=== PATIENT | female | born 2005 | race Caucasian/White ===

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

== ENCOUNTER 2024-06-17 22:47 | Emergency (ER) | payer MEDICAID, SELFPAY ==
--- NOTE | 2024-06-17 23:20 | ED.GENADUL_ITS ---
Discharge Plan Disposition Patient Disposition: Home Condition: Good Discharge Details Clinical Impression: Influenza A Primary Care Provider: Unknown,Unknown ED Provider: Wu Mayer Home Meds and New Rx's Prescriptions: No Action No Known Home Meds Discharge Instructions Instructions: Flu, Adult ED Additional Instructions: You were seen in the ED for fever, cough, body aches and have tested positive for Flu A. Please rest and hydrated over the next few days. Alternate acetaminophen 1000mg with ibuprofen 600mg every 4 hours. Follow up with PCP next week if not improving as expected. Return to ED for chest pain, shortness of breath, confusion/lethargy, neurologic change, other concerns. HPI General Mode of arrival: ambulatory . Date/Time Provider Initiated Documentation: 06/17/24 23:20 . Limitations to Documentation: no limitations . Information obtained by: patient and RN notes reviewed . HPI Narrative: Patient presents to ED with complaint of fever, cough, body aches. Patient reports having fever and GI symptoms a week and 1/2 to 2 weeks ago. She has now had earache followed by fever, cough, malaise, body aches for the last couple of days. She is not having GI symptoms. She has no chest pain, shortness of breath, abdominal pain. She has a younger brother who is just starting to have symptoms. Related Data Home Medications ?Medication ?Instructions ?Recorded ?Confirmed Unknown [No Known Home Meds] 06/17/24 06/17/24 Allergies Allergy/AdvReac Type Severity Reaction Status Date / Time No Known Allergies Allergy Unverified 06/17/24 23:27 Exam Narrative Exam Narrative: Const: WDWN female in NAD. VS per triage. HEENT: NC/AT. Normal facial exam. TMs normal. Neck: Supple. Trachea midline. Lungs: Normal respiratory effort. Lungs are clear. Cor: RRR without murmur. Good radial pulses. Neuro: A+O x 3. Normal speech, mentation, gait. Cranial nerves II - XII grossly intact. No gross motor or sensory deficit. Ext: No C/C/E. Medical Decision Making Patient presenting to ED with flulike symptoms. She is febrile and tachycardic. Nursing had obtained Fluvid and sent from triage. Discussed with patient that this most likely is influenza A given the prevalence of it in the community at this time. We did discuss use of Tamiflu which she declines appropriately given her young age and no significant medical history. She was given ibuprofen here. Fluvid swab did come back positive for influenza A. She was improved with the ibuprofen. We discussed alternating acetaminophen and ibuprofen to control fever and pain. She is to rest and hydrate appropriately. Discussed expected time course for her illness. Follow-up with primary care next week if not improving. Return precautions provided. Lab Data Lab results reviewed: Yes I reviewed the patient's lab results. Lab results narrative: See MDM Quality:SDOH Health Related Social Needs: No Data to Display PFSH All Active Problems (Updated 06/18/24 @ 00:33 by Wu Mayer MD) Influenza A (Acute) Social History Smoking/Tobacco Use Status: Never Smoking risk assessment performed?: Yes Alcohol Intake: never Substance use type: does not use Housing: house Do you feel safe at home: Yes Do you feel safe in your relationship?: Yes
[2024-06-17 23:24] VITALS: BP 132/85; PULSE 119; RESP 20; TEMP 39.6; O2SAT 98
[2024-06-17] MEDS: Ibuprofen 600 MG TAB PO (23:42)
[2024-06-18 00:08] LABS: COVID-19 PCR Negative (Negative); Influenza A PCR Positive (Negative); Influenza B PCR Negative (Negative); RSV PCR Negative (Negative); Source Nasopharynx
[2024-06-18 00:36] VITALS: BP 118/67; PULSE 98; RESP 20; TEMP 38.7; O2SAT 97
== END 2024-06-18 00:36 | disposition home or self-care (01) ==
LOC: ER 06-18 00:42
PROVIDERS: Emergency Provider Emergency Medicine
DX: J10.1 Influenza due to other identified influenza virus with other respiratory manifestations (principal)
CPT/HCPCS: 87637; 99283